=== PATIENT | female | born 1995 | race Caucasian/White ===

== ENCOUNTER 2018-04-12 02:02 | Outpatient (CLI) | payer MEDICAID ==
[2018-04-12 02:30] VITALS: BP 133/73; PULSE 60
[2018-04-12] MEDS ORDERED: PRENATAL1 TA7 PO (02:36)
== END 2018-04-12 03:50 | disposition home or self-care (01) ==
LOC: LDRO 02:02
DX: O47.03 False labor before 37 completed weeks of gestation, third trimester (principal); Z3A.36 36 weeks gestation of pregnancy